=== PATIENT | female | born 2000 | race African-American/Black ===

== ENCOUNTER 2022-03-26 08:17 | Emergency (ER) | payer MEDICAID ==
[~2022-03-26] VITALS: Ht 160 cm; Wt 62.0 kg
[2022-03-26] MEDS ORDERED: LIDOCAINE HCL 1% 20ML VIAL (Pyxis) INJ INFIL ONE (09:00)
[2022-03-26] MEDS ORDERED: TETANUS, DIPHTHERIA, PERTUSSIS VAC/PF 0.5ML (>10YR OLD) IM ONE (09:00)
[2022-03-26] MEDS ORDERED: LIDOCAINE HCL 1% 10 MG/ML 10ML VIAL IJ NR (09:30)
[2022-03-26] MEDS ORDERED: BO1 TP (10:43)
[2022-03-26 11:01] VITALS: BP 115/74
== END 2022-03-26 11:03 | disposition home or self-care (01) ==
LOC: ER 08:28
DX: S01.111A Laceration without foreign body of right eyelid and periocular area, initial encounter (principal); W01.0XXA Fall on same level from slipping, tripping and stumbling without subsequent striking against object, initial encounter; Y93.61 Activity, american tackle football; Y92.89 Other specified places as the place of occurrence of the external cause; Y99.8 Other external cause status
CPT/HCPCS: 12011; 81025; 90471; 90715; 99283; J3490

== ENCOUNTER 2023-06-29 01:07 | Emergency (ER) | payer MEDICAID ==
[~2023-06-29] VITALS: Ht 160 cm; Wt 60.0 kg
[~2023-06-29 01:07] MED LIST: BO1 TP
[2023-06-29 01:23] VITALS: O2SAT 100
[2023-06-29] MEDS ORDERED: ACETAMINOPHEN 325MG TABLET PO ONE (05:30)
[2023-06-29] MEDS ORDERED: IBUP-1523 MT (08:02)
[2023-06-29 08:52] VITALS: BP 114/79; PULSE 63; RESP 18; TEMP 98.5
== END 2023-06-29 08:55 | disposition home or self-care (01) ==
LOC: ER 01:07
DX: M54.2 Cervicalgia (principal); V49.49XA Driver injured in collision with other motor vehicles in traffic accident, initial encounter; Y93.89 Activity, other specified; Y92.89 Other specified places as the place of occurrence of the external cause; Y99.8 Other external cause status
CPT/HCPCS: 71045; 72040; 81025; 99284